=== PATIENT | male | born 1970 | race African-American/Black ===

== ENCOUNTER 2016-09-04 14:58 | Emergency (ER) | payer MEDICARE | END 2016-09-04 16:43 | disposition home or self-care (01) | LOC: SED 14:58 | DX: R21 Rash and other nonspecific skin eruption (principal); R03.0 Elevated blood-pressure reading, without diagnosis of hypertension; F17.210 Nicotine dependence, cigarettes, uncomplicated; M54.2 Cervicalgia; G89.29 Other chronic pain; Z98.890 Other specified postprocedural states | CPT/HCPCS: 99283 ==

== ENCOUNTER 2016-10-19 11:22 | Emergency (ER) | payer MEDICARE ==
[~2016-10-19] VITALS: Ht 188 cm; Wt 81.6 kg
== END 2016-10-19 12:15 | disposition home or self-care (01) ==
LOC: SED 11:22
DX: B35.6 Tinea cruris (principal)
CPT/HCPCS: 99282